=== PATIENT | female | born 1975 | race Caucasian/White ===

== ENCOUNTER 2016-11-17 15:22 | Emergency (ER) | payer OTHER ==
[~2016-11-17] VITALS: Ht 175.3 cm; Wt 99.8 kg
[2016-11-17] MEDS ORDERED: PREDNISONE 20 M20 MG PO (15:54)
[2016-11-17] MEDS ORDERED: SPIRIVA18 MCG INH (16:08)
[2016-11-17] MEDS ORDERED: DIPHENHIST50 MG PO (16:08)
[2016-11-17] MEDS ORDERED: SYMBICORT160 MCG/4. INH (16:08)
[2016-11-17] MEDS ORDERED: PRIMATENE ASTH1 EACH PO (16:09)
[2016-11-17] MEDS ORDERED: NASACORT10.8 ML NS (16:09)
[2016-11-17] MEDS ORDERED: ZANTAC 150MG T150 MG PO (16:09)
[2016-11-17 17:14] VITALS: BP 114/56
== END 2016-11-17 17:19 | disposition home or self-care (01) ==
LOC: ER 15:22
DX: T50.995A Adverse effect of other drugs, medicaments and biological substances, initial encounter (principal); J45.909 Unspecified asthma, uncomplicated; Z90.89 Acquired absence of other organs; Z88.8 Allergy status to other drugs, medicaments and biological substances; Y92.9 Unspecified place or not applicable

== ENCOUNTER 2016-12-08 13:06 | Emergency (ER) | payer OTHER ==
[~2016-12-08] VITALS: Ht 177.8 cm; Wt 93.0 kg
[~2016-12-08 13:06] MED LIST: DIPHENHIST50 MG PO; NASACORT10.8 ML NS; PREDNISONE 20 M20 MG PO; PRIMATENE ASTH1 EACH PO; SPIRIVA18 MCG INH; SYMBICORT160 MCG/4. INH; ZANTAC 150MG T150 MG PO
[2016-12-08] MEDS ORDERED: PREDNISONE10 MG PO (13:36)
[2016-12-08] MEDS ORDERED: PRILOSEC 20 MG20 MG PO (13:37)
[2016-12-08 14:54] VITALS: BP 107/69
== END 2016-12-08 14:55 | disposition home or self-care (01) ==
LOC: ER 13:06
DX: T78.1XXA Other adverse food reactions, not elsewhere classified, initial encounter (principal); X58.XXXA Exposure to other specified factors, initial encounter; J45.909 Unspecified asthma, uncomplicated; Z90.49 Acquired absence of other specified parts of digestive tract; Z88.4 Allergy status to anesthetic agent; Z91.018 Allergy to other foods